=== PATIENT | female | born 1950 | race Caucasian/White ===

== ENCOUNTER 2020-03-05 11:23 | Inpatient (IN) | payer MEDICARE, BC ==
--- NOTE | 2020-03-05 12:11 | ED ---
SOB HPI - General Stated Complaint: SOB,Covid+ Time Seen by Provider: 03/05/20 11:25 Source: patient, EMS, RN notes reviewed Mode of arrival: EMS Limitations: no limitations - History of Present Illness Initial Comments: 69-year-old female presents emergency Department with chief complaint of shortness of breath. Patient tested positive for covid last week and was seen at [facility]. Patient states that they were very full and he discharged her on home oxygen. Patient states that she's been keeping track of her pulse ox at home states that when she is not on oxygen she is as low as 85%. She has noticed increasing symptoms or she states that she's had a very difficult time breathing. Patient has no chest pain she's had on-and-off fevers chills bodyaches states that she has a slight productive cough mild nasal congestion. - Related Data Home Medications Medication Instructions Recorded Confirmed Albuterol Sulfate [Albuterol 1 puff PO RT-Q4H PRN 03/05/20 03/05/20 Sulfate Hfa] Dexamethasone [Decadron] 6 mg PO BID 03/05/20 03/05/20 Doxycycline Hyclate [Vibramycin] 100 mg PO BID 03/05/20 03/05/20 Escitalopram [Lexapro] 20 mg PO DAILY 03/05/20 03/05/20 Losartan/Hydrochlorothiazide 1 tab PO DAILY 03/05/20 03/05/20 [Losartan-Hctz 100-25 mg Tab] Metoprolol Succinate [Toprol XL] 25 mg PO DAILY 03/05/20 03/05/20 Zfo-Zrgt-Dcloo Acid 1 cap PO DAILY 03/05/20 03/05/20 [-U Capsule (formulary)] metFORMIN HCL [metFORMIN HCL ER] 1,000 mg PO BID 03/05/20 03/05/20 Allergies Allergy/AdvReac Type Severity Reaction Status Date / Time Sulfa (Sulfonamide Allergy Rash/Hives Verified 03/05/20 12:43 Antibiotics) Review of Systems ROS Statement: Those systems with pertinent positive or pertinent negative responses have been documented in the HPI. ROS Other: All systems not noted in ROS Statement are negative. General Exam General appearance: alert, in no apparent distress Head exam: Present: atraumatic, normocephalic, normal inspection Eye exam: Present: normal appearance, PERRL, EOMI. Absent: scleral icterus, conjunctival injection, periorbital swelling ENT exam: Present: normal exam, normal oropharynx, mucous membranes moist Neck exam: Present: normal inspection, full ROM. Absent: tenderness, meningismus, lymphadenopathy Respiratory exam: Present: normal lung sounds bilaterally. Absent: respiratory distress, wheezes, rales, rhonchi, stridor Cardiovascular Exam: Present: regular rate, normal rhythm, normal heart sounds. Absent: systolic murmur, diastolic murmur, rubs, gallop, clicks GI/Abdominal exam: Present: soft, normal bowel sounds. Absent: distended, tenderness, guarding, rebound, rigid Neurological exam: Present: alert, oriented X3 Skin exam: Present: warm, dry, intact, normal color. Absent: rash Course Vital Signs 03/05/20 03/05/20 03/05/20 11:35 12:18 13:18 Temperature 97.7 F Pulse Rate 72 67 66 Respiratory 20 20 18 Rate Blood Pressure 121/74 107/70 113/83 O2 Sat by Pulse 93 L 96 95 Oximetry Medical Decision Making - Medical Decision Making 69-year-old presented for hypoxia, Covid positive. Patient had increasing ascites distress. Patient will be admitted for steroids, vitamin C, vitamin D, zinc, pulmonary evaluation. - Lab Data Result diagrams: 03/05/20 12:06 03/05/20 12:06 Lab Results 03/05/20 03/05/20 03/05/20 Range/Units 12:06 12:06 12:06 WBC 13.8 H (3.8-10.6) k/uL RBC 5.03 (3.80-5.40) m/uL Hgb 14.4 (11.4-16.0) gm/dL Hct 41.9 (34.0-46.0) % MCV 83.2 (80.0-100.0) fL MCH 28.6 (25.0-35.0) pg MCHC 34.4 (31.0-37.0) g/dL RDW 12.7 (11.5-15.5) % Plt Count 444 (150-450) k/uL MPV 7.6 Neutrophils % 91 % Lymphocytes % 4 % Monocytes % 2 % Eosinophils % 1 % Basophils % 1 % Neutrophils # 12.6 H (1.3-7.7) k/uL Lymphocytes # 0.5 L (1.0-4.8) k/uL Monocytes # 0.3 (0-1.0) k/uL Eosinophils # 0.1 (0-0.7) k/uL Basophils # 0.1 (0-0.2) k/uL PT 10.1 (9.0-12.0) sec INR 1.0 (<1.2) APTT 23.4 (22.0-30.0) sec D-Dimer 0.52 (<0.60) mg/L FEU Sodium 135 L (137-145) mmol/L Potassium 3.8 (3.5-5.1) mmol/L Chloride 99 (98-107) mmol/L Carbon Dioxide 29 (22-30) mmol/L Anion Gap 7 mmol/L BUN 21 H (7-17) mg/dL Creatinine 0.65 (0.52-1.04) mg/dL Est GFR (CKD-EPI)AfAm >90 (>60 ml/min/1.73 sqM) Est GFR (CKD-EPI)NonAf >90 (>60 ml/min/1.73 sqM) Glucose 254 H (74-99) mg/dL Plasma Lactic Acid Curt (0.7-2.0) mmol/L Calcium 9.4 (8.4-10.2) mg/dL Magnesium 2.0 (1.6-2.3) mg/dL Total Bilirubin 0.7 (0.2-1.3) mg/dL AST 67 H (14-36) U/L ALT 61 H (4-34) U/L Alkaline Phosphatase 99 (38-126) U/L Lactate Dehydrogenase 1164 H (313-618) U/L C-Reactive Protein 38.2 H (<10.0) mg/L Total Protein 6.7 (6.3-8.2) g/dL Albumin 3.5 (3.5-5.0) g/dL 03/05/20 Range/Units 12:06 WBC (3.8-10.6) k/uL RBC (3.80-5.40) m/uL Hgb (11.4-16.0) gm/dL Hct (34.0-46.0) % MCV (80.0-100.0) fL MCH (25.0-35.0) pg MCHC (31.0-37.0) g/dL RDW (11.5-15.5) % Plt Count (150-450) k/uL MPV Neutrophils % % Lymphocytes % % Monocytes % % Eosinophils % % Basophils % % Neutrophils # (1.3-7.7) k/uL Lymphocytes # (1.0-4.8) k/uL Monocytes # (0-1.0) k/uL Eosinophils # (0-0.7) k/uL Basophils # (0-0.2) k/uL PT (9.0-12.0) sec INR (<1.2) APTT (22.0-30.0) sec D-Dimer (<0.60) mg/L FEU Sodium (137-145) mmol/L Potassium (3.5-5.1) mmol/L Chloride (98-107) mmol/L Carbon Dioxide (22-30) mmol/L Anion Gap mmol/L BUN (7-17) mg/dL Creatinine (0.52-1.04) mg/dL Est GFR (CKD-EPI)AfAm (>60 ml/min/1.73 sqM) Est GFR (CKD-EPI)NonAf (>60 ml/min/1.73 sqM) Glucose (74-99) mg/dL Plasma Lactic Acid Curt 1.6 (0.7-2.0) mmol/L Calcium (8.4-10.2) mg/dL Magnesium (1.6-2.3) mg/dL Total Bilirubin (0.2-1.3) mg/dL AST (14-36) U/L ALT (4-34) U/L Alkaline Phosphatase (38-126) U/L Lactate Dehydrogenase (313-618) U/L C-Reactive Protein (<10.0) mg/L Total Protein (6.3-8.2) g/dL Albumin (3.5-5.0) g/dL - EKG Data -: EKG Interpreted by Nm EKG Comments: EKG performed at 12:30 normal sinus rhythm rate of 68 UT 144 QRS 90 QT status QTC 434/461 Disposition Clinical Impression: COVID-19, Hypoxia Disposition: ADMITTED IP TO THIS [facility] Condition: Fair Referrals: Modesto Saldana MD [Primary Care Provider] - 1-2 days Time of Disposition: 13:32
[2020-03-05 12:26] LABS: Basophils # (A) 0.1 k/uL (0-0.2); Basophils % (A) 1 %; Eosinophils # (A) 0.1 k/uL (0-0.7); Eosinophils % (A) 1 %; HCT 41.9 % (34.0-46.0); HGB 14.4 gm/dL (11.4-16.0); Lymphocytes # (A) 0.5 k/uL (1.0-4.8); Lymphocytes % (A) 4 %; MCH 28.6 pg (25.0-35.0); MCHC 34.4 g/dL (31.0-37.0); MCV 83.2 fL (80.0-100.0); Mean Platelet Volume 7.6; Monocytes # (A) 0.3 k/uL (0-1.0); Monocytes % (A) 2 %; Neutrophils # (A) 12.6 k/uL (1.3-7.7); Neutrophils % (A) 91 %; Platelet Count 444 k/uL (150-450); RBC 5.03 m/uL (3.80-5.40); RDW 12.7 % (11.5-15.5); WBC 13.8 k/uL (3.8-10.6)
[2020-03-05 12:32] LABS: ALT 61 U/L (4-34); AST 67 U/L (14-36); African American GFR (CKD) >90 (>60 ml/min/1.73 sqM); Albumin 3.5 g/dL (3.5-5.0); Alkaline Phosphatase 99 U/L (38-126); Anion Gap 7 mmol/L; Blood Urea Nitrogen 21 mg/dL (7-17); C Reactive Protein 38.2 mg/L (<10.0); Calcium 9.4 mg/dL (8.4-10.2); Carbon Dioxide 29 mmol/L (22-30); Chloride 99 mmol/L (98-107); Glucose 254 mg/dL (74-99); LDH 1164 U/L (313-618); Non-African American GFR(CKD) >90 (>60 ml/min/1.73 sqM); Potassium 3.8 mmol/L (3.5-5.1); Sodium 135 mmol/L (137-145); Total Bilirubin 0.7 mg/dL (0.2-1.3); Total Protein 6.7 g/dL (6.3-8.2)
[2020-03-05 12:50] LABS: D-Dimer 0.52 mg/L FEU (<0.60); Partial Thromboplastin Time 23.4 sec (22.0-30.0); Prothrombin Time 10.1 sec (9.0-12.0)
--- NOTE | 2020-03-05 12:51 | XR ---
EXAMINATION TYPE: XR chest 2V DATE OF EXAM: 03/05/2020 COMPARISON: None HISTORY: 69-year-old female with cough, shortness of breath, and weakness TECHNIQUE: PA and lateral views FINDINGS: The cardiomediastinal silhouette, aorta, and pulmonary vasculature are within normal limits . Extensi ve bilateral patchy infiltrates. No pleural effusion. IMPRESSION: Bilateral patchy infiltrates. Correlate to exclude COVID/atypical pneumonia. Interstitial pneumonitis and hypersensitivity pneumonitis would be other differential considerations.
[2020-03-05] MEDS ORDERED: ACETAMINOPHEN TAB 500 MG TAB PO PRN (13:32)
[2020-03-05] MEDS: ENOXAPARIN 40 MG/0.4 ML SYRINGE SQ SCH (15:31)
[2020-03-05 16:32] LABS: Glucose,Whole Blood 342 mg/dL (75-99)
[2020-03-05] MEDS: INSULIN ASPART (NovoLOG) 100 UNIT/ML VIAL SQ SCH ×2 (17:17→21:04)
[2020-03-05] MEDS ORDERED: NALOXONE 0.4 MG/ML 1 ML VIAL IV PRN (17:54)
[2020-03-05] MEDS ORDERED: MELATONIN 3 MG TABLET PO PRN (17:54)
[2020-03-05] MEDS ORDERED: ONDANSETRON 4 MG/2 ML VIAL IVP PRN (17:54)
[2020-03-05] MEDS ORDERED: LACTULOSE 20 GM/30 ML CUP PO PRN (17:54)
[2020-03-05] MEDS ORDERED: MAG HYDROX/AL HYDROX/SIMETH 30 ML CUP PO PRN (17:54)
[2020-03-05] MEDS ORDERED: CALCIUM CARBONATE 500 MG CHEWABLE PO PRN (17:54)
[2020-03-05] MEDS ORDERED: ALPRAZolam 0.25 MG TAB PO PRN (17:54)
[2020-03-05] MEDS: metFORMIN 500 MG TAB PO SCH (18:12)
[2020-03-05 19:06] LABS: Ferritin 684.5 ng/mL (10.0-291.0)
--- NOTE | 2020-03-05 20:22 | P.CNPUL ---
History of Present Illness Consult date: 03/05/20 Requesting physician: Meño Boland Reason for consult: hypoxemia, pneumonia Chief complaint: Shortness of breath History of present illness: This is a 69-year-old female presented to the ER with 2 weeks history of multiple symptoms consistent with acute viral illness. Patient had symptoms of cough, congestion, fever, chills, body aches and pains, headaches, and she was seen at [facility] last week. Tested positive for covid 19, and she was discharged home on home oxygen. Patient unable to keep track of her pulse oximeter, and apparently she runs as low as 85% at times, hence she came into the ER, chest x-ray showed bilateral peripheral opacities consistent with covid 19 pneumonitis. O2 saturation was noted to be 94% on 3 L. Patient was admitted, and this consult was initiated. Review of Systems Constitutional: Fever chills or weakness HEENT: Negative sore throat. But felt congested. Pulmonary: Cough congestion and shortness of breath. Cardiac: Negative GI: Negative Genitourinary: Negative Endocrine: Negative Musculoskeletal: Aches and pains Skin: Negative Hematologic: Negative Neurologic: Negative except for occasional headaches. Psychiatric: Negative Past Medical History Past Medical History: Diabetes Mellitus, GERD/Reflux, Hypertension, Osteoarthritis (OA), Pneumonia, Sleep Apnea/CPAP/BIPAP Additional Past Medical History / Comment(s): Recent covid +, NIDDM type II, arthritis lower back/r sided, spinal stenosis, WILMA with past device use and is currently being re-tested, UTI in past. History of Any Multi-Drug Resistant Organisms: None Reported Past Surgical History: Cholecystectomy, Hysterectomy, Tubal Ligation Additional Past Surgical History / Comment(s): Anterior vaginal colpography, cystocele, rectocele, R salpingectomy d/t tubal , R knee arthroscopy, bilateral total knee arthroplasty, L heel spur removed, colonoscopy. Past Anesthesia/Blood Transfusion Reactions: No Reported Reaction, Malignant Hyperthermia Smoking Status: Never smoker - Past Family History Father Family Medical History: Diabetes Mellitus, Hypertension Mother Family Medical History: Dementia Medications and Allergies Home Medications Medication Instructions Recorded Confirmed Type Albuterol Sulfate [Albuterol 1 puff PO RT-Q4H PRN 03/05/20 03/05/20 History Sulfate Hfa] Dexamethasone [Decadron] 6 mg PO BID 03/05/20 03/05/20 History Doxycycline Hyclate [Vibramycin] 100 mg PO BID 03/05/20 03/05/20 History Escitalopram [Lexapro] 20 mg PO DAILY 03/05/20 03/05/20 History Losartan/Hydrochlorothiazide 1 tab PO DAILY 03/05/20 03/05/20 History [Losartan-Hctz 100-25 mg Tab] Metoprolol Succinate [Toprol XL] 25 mg PO DAILY 03/05/20 03/05/20 History Dvl-Wifh-Elfqf Acid 1 cap PO DAILY 03/05/20 03/05/20 History [-U Capsule (formulary)] metFORMIN HCL [metFORMIN HCL ER] 1,000 mg PO BID 03/05/20 03/05/20 History Allergies Allergy/AdvReac Type Severity Reaction Status Date / Time Sulfa (Sulfonamide Allergy Rash/Hives Verified 03/05/20 12:43 Antibiotics) Physical Exam Vitals: Vital Signs Temp Pulse Pulse Resp BP BP Pulse Ox 03/05/20 18:11 98.1 F 75 127/75 93 L 03/05/20 15:00 98.2 F 71 141/84 92 L 03/05/20 14:30 98 F 65 18 125/74 94 L 03/05/20 13:58 65 18 112/82 94 L 03/05/20 13:18 66 18 113/83 95 03/05/20 12:18 67 20 107/70 96 03/05/20 11:35 97.7 F 72 20 121/74 93 L Intake and Output 03/05/20 03/05/20 03/05/20 06:59 14:59 22:59 Other: Weight 85.729 kg 85.729 kg Physical Exam: Revealed a 69-year-old female, in no distress. Sitting eating dinner. HEENT: PERRLA, EOMI, neck times. HEENT:[Neck is supple.] [No neck masses.] [No thyromegaly.] [No JVD.] Chest: [Symmetrical chest expansion, crackles at the bases. And rhonchi noted bilaterally. Cardiac Exam: [Normal S1 and S2, no S3 gallop, no murmur.] Abdomen: [Soft, nontender, no megaly, no rebound, no guarding, normal bowel sounds.] Extremities: [No clubbing, no edema, no cyanosis.] Neurological Exam: [No focal neurologic deficit.] Alert and oriented 3. Psychiatric: Normal mood, affect and normal mental status examination. Skin: Warm and dry and no jaundice no cyanosis. Musculoskeletal: No limitation in range of motion, no deformities. Results - Laboratory Findings CBC and BMP: 03/05/20 12:06 03/05/20 12:06 PT/INR, D-dimer PT 10.1 sec (9.0-12.0) 03/05/20 12:06 INR 1.0 (<1.2) 03/05/20 12:06 D-Dimer 0.52 mg/L FEU (<0.60) 03/05/20 12:06 Abnormal lab findings: Abnormal Labs 03/05/20 03/05/20 03/05/20 12:06 12:06 16:30 WBC 13.8 H Neutrophils # 12.6 H Lymphocytes # 0.5 L Sodium 135 L BUN 21 H Glucose 254 H POC Glucose (mg/dL) 342 H Ferritin 684.5 H AST 67 H ALT 61 H Lactate Dehydrogenase 1164 H C-Reactive Protein 38.2 H - Diagnostic Findings Chest x-ray: image reviewed (As noted in HPI.) Assessment and Plan Assessment: Impression: Acute hypoxic respiratory failure Acute covid 19 pneumonitis. Type 2 diabetes. History of depression. Recommendation: Continue oxygen and titrate accordingly. Agree with the present treatment plan. Continue Decadron. Continue albuterol. Continue vitamin C and vitamin D. Continue Lovenox at 40 mg subcu daily. Resume home meds. Including blood pressure medication and diabetes medications. Continue melatonin. No need for remdesivir, symptoms are over 10 days old. We'll continue to follow. Time with Patient: Greater than 30
[2020-03-05 20:42] LABS: Glucose,Whole Blood 261 mg/dL (75-99)
--- NOTE | 2020-03-05 22:42 | P.HPIM ---
History of Present Illness H&P Date: 03/05/20 Chief Complaint: shortness of breath History of presenting complaint: This is a 69-year-old patient who follows with Dr. Saldana. Chronic stable medical conditions include diabetes, GERD, hypertension, osteoarthritis, obstructive sleep apnea uses CPAP. Arthritis. Spinal stenosis. Patient on February 18 started out with 4-5 days of generalized aches and pains. Started having a cough diarrhea started feeling tired. No loss of smell or taste. Slight headache. 48. Decreased appetite. 4 days ago she states to positive at [facility]. With COVID 19. Patient take care all 4 paraplegic , who was also admitted to the hospital with COVID 19 with her. Review of systems: GEN.: Fever chills tired decreased appetite EYES: None HEENT: None NECK: None RESPIRATORY: As above CARDIOVASCULAR: None GASTROINTESTINAL: Diarrhea GENITOURINARY: None MUSCULOSKELETAL: Joint pains LYMPHATICS: None HEMATOLOGICAL: None PSYCHIATRY: None NEUROLOGICAL: None Past medical history to include: GERD, diabetes, hypertension, osteoarthritis, obstructive sleep apnea, spinal stenosis, osteoarthritis, Social history: Lives with her home with her who is paraplegic. She is a caregiver. No smoking. Alcohol rarely. Physical examination: VITAL SIGNS: 97.7, 72, 20, 121/74, 93% on 6 L] GENERAL: BMI 32.4, laying in bed, tired. EYES: Pupils equal. Conjunctiva normal. HEENT: External appearance of nose and ears normal, oral cavity grossly normal. NECK: JVD not raised; masses not palpable. HEART: First and second heart sounds are normal; no edema. LUNGS: Respiratory rate increased, decreased breath sounds prolonged expiration. ABDOMEN: Soft, nontender, liver spleen not palpable, no masses palpable. PSYCH: [Alert and oriented x3; mood and affect anxious MUSCULAR skeletal: Evidence of OA l. NEUROLOGICAL: Cranial nerves grossly intact; no facial asymmetry, power and sensation grossly intact. LYMPHATICS: No lymph nodes palpable in the axilla and neck INVESTIGATIONS, reviewed in the clinical context: White count 13.8 hemoglobin 14.4 platelets 444 increased neutrophils, decreased lymphocytes potassium 3.8 creatinine 0.65, blood glucose 254 Ferritin 684 LDH 1164 CRP 38.2 d-dimer 0.5 to EKG tracing personally reviewed by me-no sinus rhythm Chest x-ray film personally reviewed by me-bilateral patchy infiltrates Assessment: -Bilateral COVID 19 pneumonia with patient symptoms being present since February 18. Tested positive for the same 4 days ago at [facility]. -Diabetes mellitus type 2, uncontrolled with hyperglycemia -GERD -Essential hypertension -Primary osteoarthritis -Obstructive sleep apnea -Obesity BMI 32.4 Plan: Patient started on dexamethasone, subcutaneous Lovenox. Zinc. And IV fluids. Bronchodilator. Home medications resumed. Accu-Cheks will be followed with cytosine insulin. Pulmonary was consulted. Care was discussed with the patient question also. Past Medical History Past Medical History: Diabetes Mellitus, GERD/Reflux, Hypertension, Osteoarthritis (OA), Pneumonia, Sleep Apnea/CPAP/BIPAP Additional Past Medical History / Comment(s): Recent covid +, NIDDM type II, arthritis lower back/r sided, spinal stenosis, WILMA with past device use and is currently being re-tested, UTI in past. History of Any Multi-Drug Resistant Organisms: None Reported Past Surgical History: Cholecystectomy, Hysterectomy, Tubal Ligation Additional Past Surgical History / Comment(s): Anterior vaginal colpography, cystocele, rectocele, R salpingectomy d/t tubal , R knee arthroscopy, bilateral total knee arthroplasty, L heel spur removed, colonoscopy. Past Anesthesia/Blood Transfusion Reactions: No Reported Reaction, Malignant Hyperthermia Smoking Status: Never smoker - Past Family History Father Family Medical History: Diabetes Mellitus, Hypertension Mother Family Medical History: Dementia Medications and Allergies Home Medications Medication Instructions Recorded Confirmed Type Albuterol Sulfate [Albuterol 1 puff PO RT-Q4H PRN 03/05/20 03/05/20 History Sulfate Hfa] Dexamethasone [Decadron] 6 mg PO BID 03/05/20 03/05/20 History Doxycycline Hyclate [Vibramycin] 100 mg PO BID 03/05/20 03/05/20 History Escitalopram [Lexapro] 20 mg PO DAILY 03/05/20 03/05/20 History Losartan/Hydrochlorothiazide 1 tab PO DAILY 03/05/20 03/05/20 History [Losartan-Hctz 100-25 mg Tab] Metoprolol Succinate [Toprol XL] 25 mg PO DAILY 03/05/20 03/05/20 History Dsb-Nkpn-Xlijt Acid 1 cap PO DAILY 03/05/20 03/05/20 History [-U Capsule (formulary)] metFORMIN HCL [metFORMIN HCL ER] 1,000 mg PO BID 03/05/20 03/05/20 History Allergies Allergy/AdvReac Type Severity Reaction Status Date / Time Sulfa (Sulfonamide Allergy Rash/Hives Verified 03/05/20 12:43 Antibiotics) Physical Exam Vitals: Vital Signs Temp Pulse Pulse Resp BP BP Pulse Ox 03/05/20 19:10 18 03/05/20 18:11 98.1 F 75 127/75 93 L 03/05/20 15:00 98.2 F 71 141/84 92 L 03/05/20 14:30 98 F 65 18 125/74 94 L 03/05/20 13:58 65 18 112/82 94 L 03/05/20 13:18 66 18 113/83 95 03/05/20 12:18 67 20 107/70 96 03/05/20 11:35 97.7 F 72 20 121/74 93 L Intake and Output 03/05/20 03/05/20 03/05/20 06:59 14:59 22:59 Other: Voiding Method Toilet # Voids 1 Weight 85.729 kg 85.729 kg Results CBC & Chem 7: 03/05/20 12:06 03/05/20 12:06 Labs: Abnormal Lab Results - Last 24 Hours (Table) 03/05/20 03/05/20 03/05/20 Range/Units 12:06 12:06 16:30 WBC 13.8 H (3.8-10.6) k/uL Neutrophils # 12.6 H (1.3-7.7) k/uL Lymphocytes # 0.5 L (1.0-4.8) k/uL Sodium 135 L (137-145) mmol/L BUN 21 H (7-17) mg/dL Glucose 254 H (74-99) mg/dL POC Glucose (mg/dL) 342 H (75-99) mg/dL Ferritin 684.5 H (10.0-291.0) ng/mL AST 67 H (14-36) U/L ALT 61 H (4-34) U/L Lactate Dehydrogenase 1164 H (313-618) U/L C-Reactive Protein 38.2 H (<10.0) mg/L 03/05/20 Range/Units 20:40 WBC (3.8-10.6) k/uL Neutrophils # (1.3-7.7) k/uL Lymphocytes # (1.0-4.8) k/uL Sodium (137-145) mmol/L BUN (7-17) mg/dL Glucose (74-99) mg/dL POC Glucose (mg/dL) 261 H (75-99) mg/dL Ferritin (10.0-291.0) ng/mL AST (14-36) U/L ALT (4-34) U/L Lactate Dehydrogenase (313-618) U/L C-Reactive Protein (<10.0) mg/L Thrombosis Risk Factor Assmnt - Choose All That Apply Any of the Below Risk Factors Present?: Yes Each Factor Represents 1 point: Obesity (BMI >25), Serious lung disease incl. pneumonia (< 1month) Other Risk Factors: Yes Each Risk Factor Represents 2 Points: Age 61-74 years Other congenital or acquired thrombophilia - If yes, enter type in comment: No Thrombosis Risk Factor Assessment Total Risk Factor Score: 4 Thrombosis Risk Factor Assessment Level: Moderate Risk
[2020-03-06 06:58] LABS: Glucose,Whole Blood 141 mg/dL (75-99)
[2020-03-06] MEDS: ALBUTEROL HFA INHALER INHALATION PRN ×2 (08:08→11:33)
[2020-03-06] MEDS: INSULIN ASPART (NovoLOG) 100 UNIT/ML VIAL SQ SCH ×4 (08:42→21:31)
[2020-03-06] MEDS: ZINC SULFATE 220 MG CAP PO SCH (09:06)
[2020-03-06] MEDS: LOSARTAN-HCTZ 50-12.5 MG 1 EACH TAB PO SCH (09:06)
[2020-03-06] MEDS: ESCITALOPRAM 20 MG TAB PO SCH (09:07)
[2020-03-06] MEDS: metFORMIN 500 MG TAB PO SCH ×2 (09:07→17:01)
[2020-03-06] MEDS: METOPROLOL SUCCINATE (ER) 25 MG TAB.ER.24H PO SCH (09:07)
[2020-03-06] MEDS: ASCORBIC ACID 500 MG TAB PO SCH (09:07)
[2020-03-06] MEDS: dexAMETHasone 2 MG TAB PO SCH (09:07)
[2020-03-06] MEDS: CHOLECALCIFEROL 400 UNIT TAB PO SCH (09:07)
[2020-03-06 11:45] LABS: Glucose,Whole Blood 226 mg/dL (75-99)
[2020-03-06 11:46] VITALS: BMI 32.4
[2020-03-06] MEDS: ENOXAPARIN 40 MG/0.4 ML SYRINGE SQ SCH ×2 (12:34→21:31)
--- NOTE | 2020-03-06 12:47 | XR ---
EXAMINATION TYPE: XR chest 1V portable DATE OF EXAM: 03/06/2020 HISTORY: Shortness of breath. COMPARISON: 03/05/2020 TECHNIQUE: Single view of the chest is submitted. FINDINGS: Demonstrated are scattered senescent parenchymal change. Patchy perihilar and basilar infiltrates consistent with Covid 19 pneumonia. The heart is stable. Hilar and mediastinal structures are within normal limits. Degenerative changes are seen of the dorsal spine. IMPRESSION: 1. Patchy perihilar and basilar infiltrates consistent with Covid 19 pneumonia. No interval improvem ent identified.
[2020-03-06] MEDS ORDERED: TEMAZEPAM 15 MG CAP PO PRN (14:25)
[2020-03-06] MEDS ORDERED: HYDROcodone/APAP 5-325MG 1 EACH TAB PO PRN (14:25)
[2020-03-06] MEDS: ALBUTEROL HFA INHALER INHALATION SCH ×2 (15:52→18:57)
--- NOTE | 2020-03-06 16:05 | CT ---
EXAMINATION TYPE: CT chest wo con DATE OF EXAM: 03/06/2020 COMPARISON: Chest x-ray yesterday and earlier today HISTORY: Difficulty breathing. CT DLP: 427 mGycm. Automated Exposure Control for Dose Reduction was Utilized. TECHNIQUE: CT scan of the thorax is performed without IV contrast. FINDINGS: LUNGS: Bilateral areas of groundglass opacity and some irregular consolidation correlating with recen t x-ray. No pleural effusion or pneumothorax. No suspicious nodules or masses. MEDIASTINUM: Lack of IV contrast is noted to limit evaluation for mediastinal and especially hilar ad enopathy. There are no definitive greater than 1 cm hilar or mediastinal lymph nodes. No cardiomega ly or pericardial effusion is seen. Prominent main pulmonary artery, CT findings suggesting underlyin g pulmonary hypertension. Low dense 2.5 cm structure adjacent to main pulmonary artery and the left m ediastinum felt to reflect benign thin-walled cyst or cystic lesion. Perhaps foregut duplication cyst . OTHER: Small sized hiatal hernia. Cholecystectomy clips. Fatty infiltration of liver. Moderate multil evel spurring in the spine with S-shaped scoliosis. IMPRESSION: Bilateral multifocal groundglass opacities and consolidative infiltrates consistent with covid-19 infection.
--- NOTE | 2020-03-06 16:15 | PN ---
PROGRESS NOTE DATE OF SERVICE: 03/06/2020 This 69-year-old woman who was admitted with bilateral COVID-19 pneumonia as well as diabetes mellitus, type 2, uncontrolled, is being closely monitored. The patient is complaining of extreme difficulty and shortness of breath. The patient was started on bronchodilators. The patient is being closely monitored at this time. The most recent chest x-ray, which was reviewed personally by me, showed patchy bilateral infiltrates. Past medical history reviewed. REVIEW OF SYSTEMS: CARDIOVASCULAR SYSTEM: No angina, palpitations. RESPIRATORY SYSTEM: As mentioned earlier. GI: As mentioned earlier. : No dysuria or retention. NERVOUS SYSTEM: No numbness, weakness. CURRENT MEDICATIONS: Reviewed. They include Tylenol, [place], Maalox, Ventolin, Xanax, vitamin C, Tums, vitamin D3, Hexadrol, Cephulac, melatonin, Toprol-XL, Restoril, Orazinc. PHYSICAL EXAMINATION: Patient alert and oriented x3. Pulse 70, blood pressure 120/69, respirations 16, temperature 97.7, pulse ox 92% on 4 L. HEENT: Conjunctivae normal. NECK: No jugular venous distention. CARDIOVASCULAR SYSTEM: S1, S2 muffled. RESPIRATORY SYSTEM: Breath sounds diminished at the bases. Bilateral scattered rhonchi and crackles. ABDOMEN: Soft, non-tender. LEGS: No edema. No swelling. NERVOUS SYSTEM: No focal deficit. LABS: WBC 13.8, sodium 135. Ferritin is 684. Other labs are noted. ASSESSMENT: 1. Acute COVID-19 bilateral pneumonia, possibly viral pneumonia with early sepsis and acute hypoxic respiratory failure, present on admission. 2. Diabetes mellitus, type 2, uncontrolled. 3. Increased white count. 4. Hyponatremia. 5. Elevated ferritin. 6. Increased AST, ALT. 7. Increased LDH and CRP. 8. History of gastroesophageal reflux disease. 9. Hypertension. 10.History of degenerative joint disease. 11.History of sleep apnea. 12.Diabetes mellitus, type 2. 13.History of cholecystectomy. 14.History of anxiety. 15.FULL CODE. RECOMMENDATIONS AND DISCUSSION: In this 69-year-old woman who presented with multiple complex medical issues, I recommend continuing the current medications. Continue symptomatic treatment. Otherwise at this time I recommend bronchodilators, CT scan of the chest, and consider remdesivir. Continue steroids. Continue the rest of the medications, including Lovenox. Prognosis extremely guarded because of multiple complex medical issues. Further recommendations to follow. A copy of this dictation is being forwarded to Dr. Saldana, who is the primary physician. MMEML / IJN: [id number] /
[2020-03-06 16:35] LABS: Glucose,Whole Blood 316 mg/dL (75-99)
[2020-03-06 21:04] LABS: Glucose,Whole Blood 284 mg/dL (75-99)
--- NOTE | 2020-03-07 06:37 | CONS ---
CONSULTATION DATE OF SERVICE: 03/06/2020 REASON FOR CONSULTATION: COVID-19 infection. HISTORY OF PRESENT ILLNESS: The patient is a 69-year-old female who started getting sick about 2 weeks ago after the patient did have a shopping trip to the [facility] with her girlfriend. The patient mentioned that a day or two after her trip she started getting sick and was mostly head congestion and her girlfriend had similar symptoms. However, she got better and the patient did have persistent symptoms. A week earlier, the patient tested positive for COVID at [facility] where the patient was treated symptomatically and with the home oxygen. The patient mentioned she has been keeping track of her pulse ox at home and has been running a low of 85. The patient also complaining of feeling weak and tired, no energy and has been complaining of shortness of breath on minimal exertion along with fever off and on. With these symptoms the patient presented to [facility] ER on 03/05/2020. On presentation to the hospital, the patient was afebrile and not tachycardic. The patient was saturating 93- 96% on 2 L cannula and oxygen had been bumped to 4 liters. The patient did have elevated white count with lymphopenia. D-dimer was normal. The patient did have elevated liver enzymes. Kidney function was normal and LDH was 1164. CRP of 38.2. The patient did have a chest x-ray which shows patchy bilateral infiltrate. The patient was admitted to the hospital and was seen by Pulmonary Service yesterday as well. The patient has been treated with dexamethasone, Lovenox along with zinc sulfate. With her symptoms going on for more than 2 weeks, she was considered to not be a candidate for Remdesivir. Infectious Disease was consulted today for further management. REVIEW OF SYSTEMS: Positive points have been mentioned in HPI. Rest of systems are negative. PAST MEDICAL HISTORY: Diabetes, hypertension, osteoarthritis, obstructive sleep apnea, spinal stenosis, disease. PAST SURGICAL HISTORY: No major surgery. SOCIAL HISTORY: The patient denies smoking, drinking, drug use. FAMILY HISTORY: No pertinent findings noticed. ALLERGIES: SULFA. MEDICATIONS: The patient is currently on Tums, Vitamin D3, dexamethasone, Lovenox, Lexapro, NovoLog, lactulose, Narcan, Zofran, Restoril, and zinc sulfate. PHYSICAL EXAMINATION: VITAL SIGNS: Blood pressure 142/83 with a pulse of 66, temperature 98, she is 92% on 4 L nasal cannula. GENERAL DESCRIPTION: An elderly female lying in bed in no distress. No tachypnea or accessory muscles of respiration use. HEENT: Examination shows no pallor. No scleral icterus. Oral mucous membranes are dry. No pharyngeal erythema or thrush. NECK: Trachea central, no thyromegaly. LUNGS: Unlabored breathing. Clear to auscultation anteriorly. HEART: S1-S2 regular rate and rhythm. ABDOMEN: Soft, no tenderness. EXTREMITIES: No edema of the feet. LABS: BUN of 21, creatinine 0.65. Electrolytes have been normal. Inflammatory markers are elevated. IMAGING: Chest x-ray report mentioned above. DIAGNOSTIC IMPRESSION: Patient admitted to the hospital with hypoxemia and increased shortness of breath. In addition the patient was diagnosed with COVID-19 pneumonia about a week ago. However, the patient's symptoms have been going on for more than 2 weeks and that would take her off the for Remdesivir and treatment is more support at this point. No evidence of any secondary bacterial pneumonia that antibiotic will be of any benefit for her. PLAN: 1. We will keep the patient on dexamethasone, Lovenox, zinc sulfate. 2. Supportive care and respiratory support. 3. We will follow on clinical condition and further adjust medication if needed. Thank you for this consultation. Will follow this patient along with you. MMODL / IJN: [id number] /
[2020-03-07 06:58] LABS: Basophils % (A) 0 %; Eosinophils # (A) 0.1 k/uL (0-0.7); Eosinophils % (A) 1 %; HGB 13.5 gm/dL (11.4-16.0); Lymphocytes # (A) 1.3 k/uL (1.0-4.8); Lymphocytes % (A) 17 %; MCH 27.8 pg (25.0-35.0); MCHC 32.9 g/dL (31.0-37.0); MCV 84.4 fL (80.0-100.0); Mean Platelet Volume 7.7; Monocytes # (A) 0.3 k/uL (0-1.0); Monocytes % (A) 3 %; Neutrophils # (A) 5.9 k/uL (1.3-7.7); Neutrophils % (A) 77 %; Platelet Count 472 k/uL (150-450); RBC 4.86 m/uL (3.80-5.40); RDW 13.4 % (11.5-15.5); WBC 7.6 k/uL (3.8-10.6)
[2020-03-07 07:14] LABS: Glucose,Whole Blood 157 mg/dL (75-99)
[2020-03-07] MEDS: PRENATAL VIT-IRON-FOLIC ACID 1 EACH CAP PO SCH (07:30)
[2020-03-07] MEDS: METOPROLOL SUCCINATE (ER) 25 MG TAB.ER.24H PO SCH (07:30)
[2020-03-07] MEDS: ZINC SULFATE 220 MG CAP PO SCH (07:30)
[2020-03-07] MEDS: LOSARTAN-HCTZ 50-12.5 MG 1 EACH TAB PO SCH (07:31)
[2020-03-07] MEDS: metFORMIN 500 MG TAB PO SCH ×2 (07:31→17:23)
[2020-03-07] MEDS: CHOLECALCIFEROL 400 UNIT TAB PO SCH (07:31)
[2020-03-07] MEDS: ASCORBIC ACID 500 MG TAB PO SCH (07:31)
[2020-03-07] MEDS: ESCITALOPRAM 20 MG TAB PO SCH (07:31)
[2020-03-07] MEDS: INSULIN ASPART (NovoLOG) 100 UNIT/ML VIAL SQ SCH ×4 (07:31→21:29)
[2020-03-07] MEDS: dexAMETHasone 2 MG TAB PO SCH (07:31)
[2020-03-07] MEDS: ENOXAPARIN 40 MG/0.4 ML SYRINGE SQ SCH ×2 (07:32→20:15)
[2020-03-07] MEDS: ALBUTEROL HFA INHALER INHALATION SCH ×4 (07:52→19:08)
[2020-03-07 10:00] LABS: African American GFR (CKD) 103.2 (60.0-200.0); Albumin 3.6 g/dL (3.80-4.90); Albumin/Globulin Ratio 1.57 (1.60-3.17); Anion Gap 8.9 mmol/L (4.00-12.00); BUN/Creat Ratio 25.71 Ratio (12.00-20.00); C Reactive Protein 4.4 mg/dL (0.0-0.8); Calcium 9.3 mg/dL (8.7-10.3); Carbon Dioxide 30.1 mmol/L (21.6-31.8); Ferritin 352.4 ng/mL (10.0-291.0); Globulin 2.3 g/dL (1.6-3.3); Potassium 3.4 mmol/L (3.5-5.5); Total Bilirubin 0.6 mg/dL (0.3-1.2); Total Protein 5.9 g/dL (6.2-8.2)
[2020-03-07] MEDS ORDERED: Potassium Replacement Protocol 1 EACH MISC MISCELLANE PRN (10:51)
[2020-03-07] MEDS: POTASSIUM CHLORIDE ER 20 MEQ TAB.ER PO SCH (11:29)
[2020-03-07 11:32] LABS: Glucose,Whole Blood 227 mg/dL (75-99)
[2020-03-07 16:52] LABS: Glucose,Whole Blood 379 mg/dL (75-99)
[2020-03-07] MEDS: PANTOPRAZOLE 40 MG TABLET PO SCH (17:23)
[2020-03-07 20:54] LABS: Glucose,Whole Blood 158 mg/dL (75-99)
[2020-03-07] MEDS ORDERED: INSULIN DETEMIR (LEVEMIR) 100 UNIT/ML SYR SQ SCH (21:00)
--- NOTE | 2020-03-08 00:06 | PN ---
PROGRESS NOTE DATE OF SERVICE: 03/07/2020 This 69-year-old woman was admitted with bilateral COVID pneumonia as well as diabetes mellitus type 2 uncontrolled, is being closely monitored at this time. The patient is also hypoxic also. Blood sugar is slightly well controlled, but the last blood sugar is 379 at this time. The patient is on dexamethasone 6 mg and the dose will be finished shortly on 03/16/2020. PAST MEDICAL HISTORY: Reviewed. REVIEW OF SYSTEMS: CARDIOVASCULAR SYSTEM: No angina. RESPIRATORY SYSTEM: As mentioned earlier. GI: As mentioned earlier. : No dysuria. NERVOUS SYSTEM: No numbness or weakness. CURRENT MEDICATIONS: Current medications are reviewed and include: Tylenol, [place], Ventolin, Tums, vitamin D3, Lovenox. Other medications are reviewed. PHYSICAL EXAMINATION: Patient is alert and oriented x3. Pulse 62, blood pressure 168/89, respiration 20, temperature 98.9, pulse ox 86% on room air and on ambulation. HEENT: Conjunctivae normal. NECK: No jugular venous distention. CARDIOVASCULAR: S1, S2 muffled. RESPIRATORY SYSTEM: Breath sounds diminished at the bases. Bilateral scattered rhonchi and crackles. ABDOMEN: Soft, nontender. NERVOUS SYSTEM: No focal deficits. LABS: LDL 385. CRP is 4.4. Glucose noted. ASSESSMENT: 1. Acute COVID-19 bilateral pneumonia possibly viral pneumonia, interstitial pneumonia with sepsis and acute hypoxic respiratory failure, present on admission. 2. Diabetes mellitus type 2 uncontrolled. 3. Increased WBC. 4. Hyponatremia. 5. Elevated ferritin. 6. Increased AST, ALT. 7. Elevated LDH and CRP. 8. History of gastroesophageal reflux disease. 9. Hypertension. 10.History of degenerative joint disease. 11.History of sleep apnea. 12.Diabetes mellitus type 2 uncontrolled with hyperglycemia. 13.History of cholecystectomy. 14.History of anxiety. 15.FULL CODE. RECOMMENDATIONS AND DISCUSSION: Recommend to continue current medications and continue symptomatic treatment. Continue the rest of the medications. I would also initiate Lantus 20 units and continue to monitor. Otherwise, repeat labs are ordered. Dr. Sanchez has seen the patient. Chest CT showed significant acute bilateral lesions. Dr. Sanchez recommended symptomatic treatment with dexamethasone, Lovenox and zinc sulfate. The patient is not a candidate for remdesivir per Dr. Sanchez. We will continue to monitor. Further recommendations to follow. MMODL / IJN: [id number] /
--- NOTE | 2020-03-08 06:40 | PN ---
PROGRESS NOTE DATE OF SERVICE: 03/07/2020 REASON FOR FOLLOWUP: COVID-19 infection. INTERVAL HISTORY: Patient is currently afebrile. The patient is feeling better. Breathing comfortably. The patient has been weaned off the oxygen, currently 93% on room air. Denies any chest pain. Minimal cough. No abdominal pain. No diarrhea. PHYSICAL EXAMINATION: Blood pressure 160/89, pulse of 72, temperature 98.6. She is 93% on room air. General description is an elderly female up in the bed in no distress. Respiratory system: Unlabored breathing, decreased intensity of breath sounds. No wheeze. HEART: S1, S2. Regular rate and rhythm. ABDOMEN: Soft, no tenderness. LABS: Hemoglobin 13.5, white count 7.6, BUN of 18, creatinine 0.7. IMPRESSION/PLAN: Patient with acute COVID-19 infection. This patient has clinically responded to current symptomatic treatment, as well as supportive treatment. The patient has been weaned off the oxygen. Patient to continue with dexamethasone, Lovenox, zinc sulfate and monitor clinical course closely. MMODL / IJN: [id number] /
[2020-03-08 06:55] LABS: Basophils # (A) 0.1 k/uL (0-0.2); Basophils % (A) 1 %; Eosinophils # (A) 0.3 k/uL (0-0.7); Eosinophils % (A) 3 %; HCT 39.9 % (34.0-46.0); HGB 13.6 gm/dL (11.4-16.0); Lymphocytes # (A) 1.5 k/uL (1.0-4.8); Lymphocytes % (A) 17 %; MCH 28.4 pg (25.0-35.0); MCHC 34.2 g/dL (31.0-37.0); MCV 83.1 fL (80.0-100.0); Mean Platelet Volume 7.1; Monocytes # (A) 0.4 k/uL (0-1.0); Monocytes % (A) 4 %; Neutrophils # (A) 6.4 k/uL (1.3-7.7); Neutrophils % (A) 74 %; Platelet Count 476 k/uL (150-450); RDW 12.8 % (11.5-15.5); WBC 8.6 k/uL (3.8-10.6)
[2020-03-08 07:07] LABS: Glucose,Whole Blood 89 mg/dL (75-99)
[2020-03-08] MEDS: dexAMETHasone 2 MG TAB PO SCH (08:11)
[2020-03-08] MEDS: LOSARTAN-HCTZ 50-12.5 MG 1 EACH TAB PO SCH (08:11)
[2020-03-08] MEDS: CHOLECALCIFEROL 400 UNIT TAB PO SCH (08:11)
[2020-03-08] MEDS: ASCORBIC ACID 500 MG TAB PO SCH (08:11)
[2020-03-08] MEDS: PRENATAL VIT-IRON-FOLIC ACID 1 EACH CAP PO SCH (08:12)
[2020-03-08] MEDS: METOPROLOL SUCCINATE (ER) 25 MG TAB.ER.24H PO SCH (08:12)
[2020-03-08] MEDS: INSULIN ASPART (NovoLOG) 100 UNIT/ML VIAL SQ SCH ×2 (08:12→11:55)
[2020-03-08] MEDS: PANTOPRAZOLE 40 MG TABLET PO SCH (08:12)
[2020-03-08] MEDS: ZINC SULFATE 220 MG CAP PO SCH (08:12)
[2020-03-08] MEDS: metFORMIN 500 MG TAB PO SCH (08:12)
[2020-03-08] MEDS: ENOXAPARIN 40 MG/0.4 ML SYRINGE SQ SCH (08:12)
[2020-03-08] MEDS: ESCITALOPRAM 20 MG TAB PO SCH (08:12)
[2020-03-08] MEDS: ALBUTEROL HFA INHALER INHALATION SCH ×2 (09:04→12:18)
[2020-03-08 09:14] LABS: African American GFR (CKD) 108.5 (60.0-200.0); Albumin 3.5 g/dL (3.80-4.90); Albumin/Globulin Ratio 1.59 (1.60-3.17); Anion Gap 8.5 mmol/L (4.00-12.00); BUN/Creat Ratio 28.33 Ratio (12.00-20.00); C Reactive Protein 2.8 mg/dL (0.0-0.8); Calcium 9.5 mg/dL (8.7-10.3); Carbon Dioxide 28.5 mmol/L (21.6-31.8); Globulin 2.2 g/dL (1.6-3.3); Non-African American GFR(CKD) 93.7 (60.0-200.0); Potassium 3.4 mmol/L (3.5-5.5); Total Bilirubin 0.5 mg/dL (0.3-1.2); Total Protein 5.7 g/dL (6.2-8.2)
[2020-03-08] MEDS ORDERED: POTASSIUM CHLORIDE ER 20 MEQ TAB.ER PO STA (09:27)
[2020-03-08 10:06] VITALS: BP 119/73; PULSE 70; RESP 16; TEMP 98.3
[2020-03-08 11:53] LABS: Glucose,Whole Blood 145 mg/dL (75-99)
--- NOTE | 2020-03-08 12:38 | CDI ---
Documentation Clarification Form Date: 03/08/2020 12:26:30 PM From: Cary WhiteSpanglerMITZY warren, CCDS Admit Date: 03/05/2020 01:49:00 PM Patient Name: Marva Fernandez Visit Number: [id number] Discharge Date: ATTENTION: The Clinical Documentation Specialists (CDI) and [facility] Coding Staff appreciate your assistance in clarifying documentation. Please respond to the clarification below the line at the bottom and electronically sign. The CDI & [facility] Coding staff will review the response and follow-up if needed. Please note: Queries are made part of the Legal Health Record. If you have any questions, please contact the author of this message via ITS. Dr. Rhoda Garcia: Per the 03/07 Attending Progress Note: "Acute COVID-19 bilateral pneumonia possibly viral pneumonia, interstitial pneumonia with sepsis and acute hypoxic respiratory failure, present on admission." History/Risk Factors: GERD, Hypertension, DM II, DJD, Sleep Apnea, Obesity with BMI 32.4, Anxiety. Clinical Indicators: Presented to the ED on 03/05 via EMS with SOB. Tested positive for COVID last week in [facility] and discharged home with Home O2. Admitted with COVID 19 and Hypoxia. 03/05 VS: T 97.7, P 72, R 20 (sob), BP 121/74, PO 93 6Lnc LAB 03/05 WBC 13.8^, Neut 12.6^, Lymph 0.5*, Na 135*, BUN 21^, Cr (0.65), Glucose 254^, Ferritin 684.5^, AST 67^, ALT 61^, Lactate Dehydrogenase 1164^, CRP 38.2^, Lactic Acid (1.6) Treatment: Infectious Disease Consult, Pulmonary Consult, INH Ventolin, Lovenox sq, Vit C, Vit D3, Hexadrol, Zinc Sulfate, INH Ventolin. No Remdesivir, per Infectious Disease, the patient has had symptoms greater than 2 weeks. In your professional opinion, please clarify if these findings signify one of the following conditions, whether the condition is POA, and cause, if known: Sepsis with Severe Sepsis Sepsis without Severe Sepsis Other, please specify Unable to determine o Present on Admission: Yes or No o Link or clarify if there is associated (due to/with): o Organ failure o Other, please specify: (Last Revision: July 2017) Sepsis without Severe Sepsis MTDD
--- NOTE | 2020-03-08 12:44 | XR ---
EXAMINATION TYPE: XR chest 1V portable DATE OF EXAM: 03/08/2020 COMPARISON: 05/06/2019 INDICATION: Covid short of breath TECHNIQUE: Single frontal view of the chest is obtained. FINDINGS: The heart size is normal. The pulmonary vasculature is normal. Scattered bilateral infiltrates are present. Which can be compatible with Covid pneumonia. Findings a re improving from comparison. IMPRESSION: 1. Improving bilateral lung infiltrates, continued follow-up is recommended
--- NOTE | 2020-03-08 12:46 | P.DS ---
Providers Date of admission: 03/05/20 13:49 Expected date of discharge: 03/08/20 Attending physician: Meño Boland Consults: 03/05/20 13:40 Consult Physician Urgent Consulting Provider: Rina Glez Consult Reason/Comments: COVID Do you want consulting provider notified?: Yes 03/06/20 10:55 Consult Physician Routine Consulting Provider: Cayla Sanchez Consult Reason/Comments: covid Do you want consulting provider notified?: Yes Primary care physician: Modesto Les [place] [facility] Course: Final diagnosis Acute Covid 19 bilateral pneumonia possibly viral pneumonia, interstitial p neumonia with sepsis and acute hypoxic respiratory failure, present on admission Diabetes mellitus type 2, uncontrolled Increased white blood count Hyponatremia Elevated ferritin Increased AST, ALT Elevated LDH and CRP History of GERD Hypertension History of degenerative joint disease history of sleep apnea Diabetes mellitus type 2, uncontrolled with hyperglycemia History of cholecystectomy History of anxiety Full code Discharge disposition Patient is being discharged in a stable condition with guarded prognosis to home. Patient will follow-up with Dr. Saldana in the outpatient setting upon dis charge. Patient is to continue with dexamethasone 6 mg daily for the next 5 days to complete the course. She will also continue with home care in the outpatient setting. Total time taken is greater than 35 minutes. History of present illness This is a 69-year-old female who was recently admitted with bilateral Covid pneumonia as well as diabetes mellitus uncontrolled and was being closely gracie tored. Patient was maintained on dexamethasone and oxygen and normally has home oxygen in the outpatient setting. Infectious disease following the patient and patient will continue with zinc supplements, vitamin C and D supplements, and dexamethasone to complete the course. Blood sugars uncontrolled and patient will be initiated on long-acting insulin and instructed to continue to monitor blood sugars before meals at bedtime and keep a diary for primary care follow- up. Scripts were sent to pharmacy for supplies. Currently no reports of chest pain, worsening shortness of breath, or palpitations. Patient is afebrile. No reports of nausea or vomiting and patient is tolerating diet. Patient will be going home today. On exam vital signs are stable. Temp is 98.3F, pulse is 70, respirations are 16, blood pressure is 119/73, oxygen saturation is 92% on room air. Cardio S1, S2 are muffled. Respiratory system shows diminished breath sounds at the bases with no wheezing or rhonchi noted. Abdomen is soft and nontender. Nervous system shows no focal deficits. Please refer to medication reconciliation sheet for a list of medications. Patient Condition at Discharge: Fair Plan - Discharge Summary Discharge Rx Participant: No New Discharge Prescriptions: New Insulin Detemir (Levemir) [Levemir] 15 unit SQ HS 30 Days #2 syr Zinc Sulfate [Orazinc] 220 mg PO DAILY 30 Days #30 cap Albuterol Inhaler [Ventolin Hfa Inhaler] 2 puff INHALATION RT-Q6H PRN puff PRN Reason: Shortness Of Breath Or Wheezing Ascorbic Acid [Vitamin C] 1,000 mg PO DAILY 30 Days #30 tab Cholecalciferol [Vitamin D3] 400 unit PO DAILY 30 Days #30 tab Continue metFORMIN HCL [metFORMIN HCL ER] 1,000 mg PO BID Metoprolol Succinate [Toprol XL] 25 mg PO DAILY Losartan/Hydrochlorothiazide [Losartan-Hctz 100-25 mg Tab] 1 tab PO DAILY Escitalopram [Lexapro] 20 mg PO DAILY Albuterol Sulfate [Albuterol Sulfate Hfa] 1 puff PO RT-Q4H PRN PRN Reason: Shortness Of Breath [id number] Acid [-U Capsule (formulary)] 1 cap PO DAILY Changed Dexamethasone [Decadron] 6 mg PO DAILY 4 Days #4 caplet Discontinued Doxycycline Hyclate [Vibramycin] 100 mg PO BID Discharge Medication List Albuterol Sulfate [Albuterol Sulfate Hfa] 1 puff PO RT-Q4H PRN 03/05/20 [History] Escitalopram [Lexapro] 20 mg PO DAILY 03/05/20 [History] Losartan/Hydrochlorothiazide [Losartan-Hctz 100-25 mg Tab] 1 tab PO DAILY 03/05/20 [History] Metoprolol Succinate [Toprol XL] 25 mg PO DAILY 03/05/20 [History] Yfv-Iyiu-Xjigk Acid [-U Capsule (formulary)] 1 cap PO DAILY 03/05/20 [History] metFORMIN HCL [metFORMIN HCL ER] 1,000 mg PO BID 03/05/20 [History] Albuterol Inhaler [Ventolin Hfa Inhaler] 2 puff INHALATION RT-Q6H PRN puff 03/08/20 [Rx] Ascorbic Acid [Vitamin C] 1,000 mg PO DAILY 30 Days #30 tab 03/08/20 [Rx] Cholecalciferol [Vitamin D3] 400 unit PO DAILY 30 Days #30 tab 03/08/20 [Rx] Dexamethasone [Decadron] 6 mg PO DAILY 4 Days #4 caplet 03/08/20 [Rx] Insulin Detemir (Levemir) [Levemir] 15 unit SQ HS 30 Days #2 syr 03/08/20 [Rx] Zinc Sulfate [Orazinc] 220 mg PO DAILY 30 Days #30 cap 03/08/20 [Rx] Follow up Appointment(s)/Referral(s): Modesto Saldana MD [Primary Care Provider] - 1-2 days [facility], [NON-STAFF] - Activity/Diet/Wound Care/Special Instructions: Activity Limited until follow-up Follow-up with primary care provider upon discharge Continue to monitor blood sugars before meals at bedtime and keep a diary for primary care follow-up Continue with long-acting Continue with dexamethasone until finished Continue current diet Continue to quarantine for an additional 10 days until primary follow-up Discharge Disposition: HOME WITH HOME HEALTH SERVICES
[2020-03-08 15:36] LABS: Hemoglobin A1C 8.7 % (4.0-6.0)
== END 2020-03-08 13:38 | disposition home health service (06) | DRG 871 ==
LOC: EC 11:23 → 6NMEDSUR 13:49 → 4SSUR 14:16
PROVIDERS: ADMIT Hospitalist; ATTEND Hospitalist
DX: A41.89 Other specified sepsis (principal); U07.1 COVID-19; J12.89 Other viral pneumonia; J96.01 Acute respiratory failure with hypoxia; E87.1 Hypo-osmolality and hyponatremia; E11.65 Type 2 diabetes mellitus with hyperglycemia; R74.02 Elevation of levels of lactic acid dehydrogenase [LDH]; I10 Essential (primary) hypertension; K21.9 Gastro-esophageal reflux disease without esophagitis; G47.33 Obstructive sleep apnea (adult) (pediatric); E66.9 Obesity, unspecified; M19.91 Primary osteoarthritis, unspecified site; M48.00 Spinal stenosis, site unspecified; M47.816 Spondylosis without myelopathy or radiculopathy, lumbar region; R79.89 Other specified abnormal findings of blood chemistry; G47.30 Sleep apnea, unspecified; F41.9 Anxiety disorder, unspecified; F32.9 Major depressive disorder, single episode, unspecified; Z68.32 Body mass index [BMI] 32.0-32.9, adult; Z90.49 Acquired absence of other specified parts of digestive tract; Z90.710 Acquired absence of both cervix and uterus; Z98.890 Other specified postprocedural states; Z96.653 Presence of artificial knee joint, bilateral; Z88.2 Allergy status to sulfonamides; Z79.899 Other long term (current) drug therapy; Z79.84 Long term (current) use of oral hypoglycemic drugs; Z87.440 Personal history of urinary (tract) infections; Z82.49 Family history of ischemic heart disease and other diseases of the circulatory system; Z83.3 Family history of diabetes mellitus; Z81.8 Family history of other mental and behavioral disorders
CPT/HCPCS: 36415; 71045; 71046; 71250; 80053; 82728; 83036; 83605; 83615; 83735; 84145; 85025; 85379; 85610; 85730; 86140; 93005; 94640; 99285

== ENCOUNTER → 2021-01-12 | Outpatient (CLI) | payer MEDICARE, BC ==
--- NOTE | 2021-01-12 10:09 | MR ---
EXAMINATION TYPE: MR brain wo con DATE OF EXAM: 01/12/2021 COMPARISON: NONE HISTORY: Memory loss, evaluate for possible CVA. TECHNIQUE: Multiplanar, multisequence imaging of the brain and brainstem is performed without IV cont rast. FINDINGS: Diffusion weighted images demonstrate no evidence of a recent infarct or other diffusion abnormality. There is mild to moderate diffuse ventricular and sulcal prominence. There are scattered foci of T2 h yperintensity seen throughout the white matter bilaterally. Approximately 15-20 scattered small lesio ns. Lesions are nonspecific in appearance and distribution. Midline structures demonstrate normal morphology. The craniocervical junction appears within normal limits. Normal vascular flow voids are present. The visualized sinuses are clear and the globes are i ntact. IMPRESSION: [id number] diffuse cerebral atrophy and chronic small vessel ischemic change. No MR I evidence for recent infarct or large old infarct.
== END | disposition home or self-care (01) ==
LOC: RADMRIMAIN 09:09
PROVIDERS: ATTEND Psychiatry & Neurology Neurology
DX: G31.9 Degenerative disease of nervous system, unspecified (principal); I67.82 Cerebral ischemia
CPT/HCPCS: 70551

== ENCOUNTER → 2021-05-22 | Outpatient (CLI) | payer MEDICARE, BC ==
[2021-05-22 19:22] LABS: African American GFR (CKD) 96.7 (60.0-200.0); Albumin/Globulin Ratio 1.41 (1.60-3.17); BUN/Creat Ratio 28.9 Ratio (12.00-20.00); Blood Urea Nitrogen 21.1 mg/dL (9.0-27.0); Calcium 9.9 mg/dL (8.7-10.3); Carbon Dioxide 25.6 mmol/L (20.0-27.5); Globulin 2.9 g/dL (1.6-3.3); Non-African American GFR(CKD) 83.4 (60.0-200.0); Total Bilirubin 0.4 mg/dL (0.30-1.20); Total Protein 6.9 g/dL (6.2-8.2)
[2021-05-23 08:25] LABS: C-Peptide 1.91 ng/mL (0.81-3.85)
== END | disposition home or self-care (01) ==
LOC: LABWHC1 11:05
PROVIDERS: ATTEND Internal Medicine Endocrinology, Diabetes & Metabolism
DX: E11.65 Type 2 diabetes mellitus with hyperglycemia (principal)
CPT/HCPCS: 36415; 80053; 83519; 84681

== ENCOUNTER → 2024-06-03 | Outpatient (CLI) | payer MEDICARE, BC ==
[2024-06-03 13:28] LABS: ALT 50 U/L (8-44); AST 58 U/L (13-35); Albumin/Globulin Ratio 1.29 Ratio (1.60-3.17); Alkaline Phosphatase 107 U/L (41-126); BUN/Creat Ratio 15.71 Ratio (12.00-20.00); Calcium 9.7 mg/dL (8.7-10.3); Carbon Dioxide 28.6 mmol/L (21.6-31.8); Chloride 102 mmol/L (96-109); Chol/HDL Ratio 2.61 Ratio; Globulin 3.1 g/dL (1.6-3.3); Glucose 132 mg/dL (70-110); LDL Cholesterol,Calculated 53.7 mg/dL (0.0-131.0); Potassium 4.2 mmol/L (3.5-5.5); Sodium 142 mmol/L (135-145); Total Bilirubin 0.4 mg/dL (0.3-1.2); Total Protein 7.1 g/dL (6.2-8.2)
[2024-06-03 14:23] LABS: Urine Creatinine 80.5 mg/dL (28.0-217.0)
== END | disposition home or self-care (01) ==
LOC: LABWHC1 08:25
PROVIDERS: ATTEND Nurse Practitioner Gerontology
DX: E11.9 Type 2 diabetes mellitus without complications (principal); Z79.4 Long term (current) use of insulin
CPT/HCPCS: 36415; 80053; 80061; 82043; 82570; 83036